=== PATIENT | female | born 1990 | race Caucasian/White ===

== ENCOUNTER 2021-01-12 09:12 | Inpatient (IN) | payer OTHER, SELFPAY ==
[2021-01-12] VITALS (58 sets, daily range): BP systolic 99–127; BP diastolic 44–102; PULSE 34–112; RESP 12–16; TEMP 36.1–37.4; O2SAT 84–100; BMI 29.1
[2021-01-12] MEDS: LACTATED RINGERS 1,000 ML 125 ML IV CONT (09:30)
--- NOTE | 2021-01-12 09:38 | PM.IMHP ---
H&P: HPI History of Present Illness Date/Time: 01/12/21 09:38 Jayla is a @ 37.3wks (DAKSHA 01/30/21) who presented to L&D in active labor; SROM today @ unknown time; found to be 6cm. She denies bleeding. Good movement. Requesting c/s. Her is complicated by: - H/o shoulder dystocia; requesting pLTCS + BTL - BTL papers signed on 10/17/20 - H/o substance abuse; last fentanyl use 01/11/21 - Limited care; 2 visits, no labs performed - Hepatitis C - Complex social situation; does not have custody of 3 prior children Chief Complaint: contractions and leakage of fluid Review of Systems Review of Systems: All systems reviewed & are unremarkable except as noted in HPI and below (HPI) [facility] Family History Family History Grandparent Hypertension Diabetes mellitus Mother Family history of hypothyroidism Meds Home Medications and Allergies Allergies Allergy/AdvReac Type Severity Reaction Status Date / Time No Known Allergies Allergy Unknown Verified 08/19/11 10:07 Exam Const: General: acute distress (with contractions), anxious and intoxicated appearing Resp: Effort & Inspection: normal respiratory effort and able to speak in complete sentences Cardio: Rate: regular rate GI: GI Palp: No abdominal tenderness and Yes Soft to palpation : Other: FHT's: 150's/ mod jenny/ + accels/ no decels but discontinuous TOCO: ctx's q 2-3min Membranes: SROM Cervix; 7cm Psych: Speech and movement: Psychomotor agitation in speech present and Restless speech present Affect: Anxious affect present Attitude: Belligerent attititude/behavior present Assessment and Plan Assessment and plan (1) : Qualifiers: Weeks of gestation: 37 weeks Qualified Code(s): Z3A.37 - 37 weeks gestation of Code(s): Z34.90 - Encounter for supervision of normal , unspecified, unspecified trimester Status: Acute (2) Drug abuse and dependence: Code(s): F19.20 - Other psychoactive substance dependence, uncomplicated Status: Acute (3) History of shoulder dystocia in prior : Code(s): Z87.59 - Personal history of other complications of , childbirth and the puerperium Status: Acute (4) Request for sterilization: Code(s): Z30.2 - Encounter for sterilization Status: Acute Additional Plan - plan for primary low transverse section with tubal ligation - risks and benefits explained in detail - social work consult
--- NOTE | 2021-01-12 09:49 | WPDHPUPDATE1 ---
History and Physical Update Update Date/Time: 01/12/21 09:49 History and Physical has been reviewed, including an updated exam of the patient. There are NO changes in the patient's condition. Risks, benefits, and alternatives have been discussed and questions answered. Patient agrees to proceed with procedure.
[2021-01-12 09:59] LABS: Basophils Absolute Auto 0.1 K/mm3 (0.0-0.1); Basophils Percent Auto 0.6 % (0.2-1.2); Eosinophils Absolute Auto 0.1 K/mm3 (0-0.3); Eosinophils Percent Auto 0.7 % (0-4.4); Hematocrit 34.8 % (37.0-47.0); Hemoglobin 11.3 g/dL (12.0-15.0); Immature Granulocyte Absolute 0.16 K/mm3 (0.00-0.031); Immature Granulocyte Percent A 1.2 % (0-0.5); Lymphocytes Absolute Auto 1.88 K/mm3 (0.9-3.2); Lymphocytes Percent Auto 13.6 % (18.3-44.2); Mean Corpuscular HGB Conc 32.5 g/dl (32-36); Mean Corpuscular Hemoglobin 28.2 pg (26-34); Mean Corpuscular Volume 86.8 fl (80-100); Mean Platelet Volume 9.7 fl (7.4-10.4); Monocytes Absolute Auto 1.1 K/mm3 (0.1-0.6); Monocytes Percent Auto 7.7 % (2.6-8.5); Neutrophils Absolute Auto 10.5 K/mm3 (1.3-6.7); Neutrophils Percent Auto 76.2 % (45.5-73.1); Platelet Count Result 271 k/mm3 (150-375); Red Blood Count 4.01 M/mm3 (4.2-5.4); Red Cell Distribution Width 13.3 % (11.5-14.5); White Blood Count 13.8 K/mm3 (4.5-10.0)
[2021-01-12] MEDS: ceFAZolin 2 GM/D5W 50 ML 2 GM/50 ML BAG IVPB (10:01)
[2021-01-12 10:10] LABS: Alanine Aminotransferase 33 U/L (4-35); Albumin Level 3.3 g/dL (3.5-5.1); Alkaline Phosphatase 356 U/L (38-126); Aspartate Amino Transferase 38 U/L (14-36); Bilirubin,Total 0.5 mg/dL (0.2-1.3)
--- NOTE | 2021-01-12 10:35 | WPDANESEPPF ---
Anes - Initial Pre Proc Eval Procedure: Primary C section Date/Time: 01/12/21 10:35 Surgeon: Ne Downs MD Pre Op Diagnosis: History of Shoulder dystocia Pre Op Diagnosis: Contractions Patient Data Age: 30 Gender: F Height: Weight: Last Vital Signs Pulse 67 01/12/21 09:46 BP 113/102 H 01/12/21 09:46 Allergies Allergy/AdvReac Type Severity Reaction Status Date / Time No Known Allergies Allergy Unknown Verified 08/19/11 10:07 Laboratory Tests 01/12/21 01/12/21 01/12/21 09:45 09:45 09:45 WBC 13.8 K/mm3 H K/mm3 (4.5-10.0) RBC 4.01 M/mm3 L M/mm3 (4.2-5.4) Hgb 11.3 g/dL L g/dL (12.0-15.0) Hct 34.8 % L % (37.0-47.0) MCV 86.8 fl fl (80-100) MCH 28.2 pg pg (26-34) MCHC 32.5 g/dl g/dl (32-36) RDW 13.3 % % (11.5-14.5) Plt Count 271 k/mm3 k/mm3 (150-375) MPV 9.7 fl fl (7.4-10.4) Immature Gran % (Auto) 1.2 % H % (0-0.5) Neut % (Auto) 76.2 % H % (45.5-73.1) Lymph % (Auto) 13.6 % L % (18.3-44.2) [place] % (Auto) 7.7 % % (2.6-8.5) Eos % (Auto) 0.7 % % (0-4.4) Baso % (Auto) 0.6 % % (0.2-1.2) Lymph # (Auto) 1.88 K/mm3 K/mm3 (0.9-3.2) [place] # (Auto) 1.1 K/mm3 H K/mm3 (0.1-0.6) Eos # (Auto) 0.1 K/mm3 K/mm3 (0-0.3) Baso # (Auto) 0.1 K/mm3 K/mm3 (0.0-0.1) Abs Immat Gran (auto) 0.16 K/mm3 H K/mm3 (0.00-0.031) Absolute Neuts (auto) 10.5 K/mm3 H K/mm3 (1.3-6.7) Absolute Nucleated RBC 0.0 K/mm3 K/mm3 (0.0-0.012) Nucleated RBC % 0.0 % % (0.0-0.2) Total Bilirubin Direct Bilirubin AST ALT Alkaline Phosphatase Total Protein Albumin RPR Pending HIV 1&2 Ab/P24 Ag 4thGn Rubella IgG Antibody Pending 01/12/21 01/12/21 09:45 09:45 WBC RBC Hgb Hct MCV MCH MCHC RDW Plt Count MPV Immature Gran % (Auto) Neut % (Auto) Lymph % (Auto) [place] % (Auto) Eos % (Auto) Baso % (Auto) Lymph # (Auto) [place] # (Auto) Eos # (Auto) Baso # (Auto) Abs Immat Gran (auto) Absolute Neuts (auto) Absolute Nucleated RBC Nucleated RBC % Total Bilirubin 0.5 mg/dL mg/dL (0.2-1.3) Direct Bilirubin 0.0 mg/dL mg/dL (0-0.3) AST 38 U/L H U/L (14-36) ALT 33 U/L U/L (4-35) Alkaline Phosphatase 356 U/L H U/L (38-126) Total Protein 7.0 g/dL g/dL (6.3-8.2) Albumin 3.3 g/dL L g/dL (3.5-5.1) RPR HIV 1&2 Ab/P24 Ag 4thGn Pending Rubella IgG Antibody Patient hx anesthesia problems: none Family hx anesthesia problems: none [facility] Past Medical History Medical History (Updated 01/12/21 @ 10:37 by Eulogio Bocanegra DO) Drug abuse and dependence Hepatitis C Family History Family History Grandparent Hypertension Diabetes mellitus Mother Family history of hypothyroidism Social History Social History (Updated 01/12/21 @ 10:37 by Eulogio Bocanegra DO) Smoking status: Current every day smoker Anes - Eval Final PreProcedure Day of Procedure 01/12/21 10:35 Patient weight: normal Heart: regular rate and rhythm Lungs: clear to auscultation and normal air movement Airway: Mallampati scale class II Neurological: alert and oriented Last oral intake: >/= 8 hours ASA classification: III Emergent: yes Anesthetic plan: proceed Anesthesia type and monitoring: regional spinal and standard monitoring Informed Consent: The patient's anesthetic plan and its attendant risks and benefits w
--- NOTE | 2021-01-12 10:50 | P.PCNOB_ITS ---
OB - Delivery Note Procedure Procedure: Procedures Operation Date: 01/12/21 10:00 <No data on this case meets the specified criteria> Route of delivery: Indication for instrumentation: other (prior shoulder dystocia) Episiotomy description: None Specimen: Yes Quantitative Blood Loss (ml): 1,090 Anesthesia type: Spinal Disposition: floor Narrative: Patient prepped in usual manner for this procedure. Pfannenstiel incision was made. This was carried down to the fascia which was extended bilaterally the length of the skin incision. Peritoneum was readily entered and bladder flap was developed. Uterus scored with clear fluid and the vertex was delivered without difficulty. Rest of baby was delivered cord clamped cut and placenta was removed manually. Uterus was exteriorized and incision approximated 0 Monocryl running interlocking manner with good approximation hemostasis noted. Left angle was oozing slightly and a [id number] suture rendered this hemostatic. Uterus was turned to the abdomen gutters were cleared of serosanguineous fluid and clots. The was no significant bleeding at this point. All subfascial tissue was noted hemostatic and then approximated using 0 Vicryl from left angle midline and the right angle to midline. Subcutaneous tissue was irrigated approximated using 0 plain suture and fredy used to approximate skin edges. At this point seizure was considered terminated immediate postop condition mother baby were both excellent. [place] Baby Weeks of gestation at delivery: 37 Infant gender: Male Weight (pounds): 6 Weight (ounces): 12 score one minute: 7 score five minutes: 9
[2021-01-12 10:51] LABS: HIV 1/2 Ab P24 Ag Result Negative (Negative); Rubella IgG Antibody 8.3 IU/ML
--- NOTE | 2021-01-12 11:45 | LDADM ---
This patient, Jayla Wick, was admitted to Labor/Delivery/Recovery 120 on 01/12/21 at 09:12. Plans for labor, pain management and were discussed with patient. Patient/family oriented to hospital policies and general routines including ID bracelet, bed and alarms, visiting hours, pain management, procedures, bathroom and other care routines, personal items, smoking policy, room service/diet and guest tray routines, infant security routines, and visiting hours. Patient/Family are encouraged to report perceived risks to care and to ask questions if they do not understand what they are told or what they should do. See OBIX for further documentation.
[2021-01-12 11:51] LABS: Amphetamine Screen Urine Positive (Negative); Barbiturate Screen Urine Negative (Negative); Benzodiazepines Screen Urine Negative (Negative); Cannabinoid Screen Urine Negative (Negative); Cocaine Screen Urine Negative (Negative); Methadone Screen Urine Negative (Negative); Opiate Screen Urine Negative (Negative); Phencyclidine Screen Urine Negative (Negative)
[2021-01-12] MEDS: OXYTOCIN 30 UNITS/NS 500 ML 30 UNITS/500 ML BAG 125 UNITS IV CONT (12:00)
[2021-01-12 12:31] LABS: Hepatitis B Surface Antigen Negative (Negative)
[2021-01-12] MEDS: KETOROLAC 30 MG/ML VIAL (*BKC) IV PUSH (12:41)
[2021-01-12] MEDS: MORPHINE SULFATE INJ (*CRX) 10 MG/ML AMP (13:55)
[2021-01-12] MEDS: DEXTROSE 5%/0.45% SOD CHL 1,000 ML 125 ML IV CONT (14:02)
--- NOTE | 2021-01-12 14:07 | OBPPTRN ---
1321 Patient transferred to post room #282 via stretcher. Oriented to unit, room, information board, rooming in, admission packet and security measures. Patient verbalizes understanding.
--- NOTE | 2021-01-12 14:54 | PC.NURSE ---
1340 Fundal message to firm, clots passed pt in major pain with fundal checks. Called out for RN to assist. Second RN in room did manual removal of clots while this RN @ [address] Larios to update and get stronger IV pain meds ordered. Second RN increased Pitocin IV to wide open. Weighed clots 299cc. VS are charted they were stable. 1355 Morphine given IM. 1410 Fundus firm, scant bleeding, pt sleeping.
[2021-01-12] MEDS: HYDROcodone/acetaminophen (*CRX) 5-325 MG TABLET 1 TAB PO ×2 (20:37→21:15)
[2021-01-12] MEDS: IBUPROFEN 600 MG TABLET PO (20:37)
[2021-01-12] MEDS: KCL 20 MEQ/D5/0.45% SOD CHL 1,000 ML 125 ML IV CONT (22:18)
[2021-01-13 00:05] VITALS: BP 95/52; PULSE 70; RESP 18; TEMP 37.2
[2021-01-13] MEDS: IBUPROFEN 600 MG TABLET PO ×3 (04:03→19:24)
[2021-01-13] MEDS: HYDROcodone/acetaminophen (*CRX) 5-325 MG TABLET 1 TAB PO (04:03)
[2021-01-13 04:10] VITALS: BP 100/56; PULSE 64; RESP 18; TEMP 37.1
[2021-01-13] MEDS: DEXTROSE 5%/0.45% SOD CHL 1,000 ML 125 ML IV CONT (05:47)
[2021-01-13 05:49] LABS: Basophils Percent Auto 0.3 % (0.2-1.2); Eosinophils Percent Auto 0.1 % (0-4.4); Hematocrit 27.5 % (37.0-47.0); Immature Granulocyte Absolute 0.13 K/mm3 (0.00-0.031); Immature Granulocyte Percent A 0.9 % (0-0.5); Lymphocytes Absolute Auto 2.06 K/mm3 (0.9-3.2); Lymphocytes Percent Auto 14.4 % (18.3-44.2); Mean Corpuscular HGB Conc 32.7 g/dl (32-36); Mean Corpuscular Hemoglobin 28.3 pg (26-34); Mean Corpuscular Volume 86.5 fl (80-100); Mean Platelet Volume 9.7 fl (7.4-10.4); Monocytes Absolute Auto 0.9 K/mm3 (0.1-0.6); Neutrophils Absolute Auto 11.2 K/mm3 (1.3-6.7); Neutrophils Percent Auto 78.3 % (45.5-73.1); Platelet Count Result 278 k/mm3 (150-375); Red Blood Count 3.18 M/mm3 (4.2-5.4); Red Cell Distribution Width 13.4 % (11.5-14.5); White Blood Count 14.3 K/mm3 (4.5-10.0)
--- NOTE | 2021-01-13 05:52 | PC.NURSE ---
01/13/2021 approximately 0545. After drawing patient's lab. I performed pericare and told the patient she needs to get OOB. Patient states, I can't, I'm dope sick. They told you didn't they? I told the patient yes I had been told she used Fentanyl the day before. I encouraged the patient to get OOB to decrease the chance of getting pneumonia by lying in bed among other things. I can't I just hurt all over. The patient refused to get OOB. The patient states she wants some Methadone from her doctor to help with the withdrawals from the Fentanyl. I suggested the patient ask the doctor about it this morning when he comes in. The patient stated understanding.
[2021-01-13 07:20] VITALS: BP 100/56; PULSE 68; RESP 16; TEMP 36.6; O2SAT 95
[2021-01-13] MEDS: HYDROcodone/acetaminophen (*CRX) 10-325 MG TABLET 1 TAB PO ×4 (07:53→19:23)
[2021-01-13 08:02] LABS: Rapid Plasma Reagin Non-Reactive (NonReactive)
--- NOTE | 2021-01-13 09:42 | PM.OBPNVD ---
OB - PN: Subj Subjective Date/time seen: 01/13/21 09:42 POD#1 Jayla reports not doing well today; she reports she is going through withdrawals. She reports feeling sweaty, muscle aches, nausea, anorexia. She reports minimal PO intake. She still has her friend catheter in place. She has passed gas multiple times. 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 She does not plan to breast feed. She has not gotten any updates about her son (transferred to [facility]). She denies anxiety, CP, SOB, CHOU, vision changes, fever, chills, vomiting, dizziness or palpations. OB - PN: Obj Data Labs CBC & Chem 7: 01/13/21 05:39 Labs: Laboratory Results - last 24 hr 01/12/21 01/12/21 01/12/21 09:45 09:45 09:45 WBC 13.8 H RBC 4.01 L Hgb 11.3 L Hct 34.8 L MCV 86.8 MCH 28.2 MCHC 32.5 RDW 13.3 Plt Count 271 MPV 9.7 Immature Gran % (Auto) 1.2 H Neut % (Auto) 76.2 H Lymph % (Auto) 13.6 L [place] % (Auto) 7.7 Eos % (Auto) 0.7 Baso % (Auto) 0.6 Lymph # (Auto) 1.88 [place] # (Auto) 1.1 H Eos # (Auto) 0.1 Baso # (Auto) 0.1 Abs Immat Gran (auto) 0.16 H Absolute Neuts (auto) 10.5 H Absolute Nucleated RBC 0.0 Nucleated RBC % 0.0 Total Bilirubin Direct Bilirubin AST ALT Alkaline Phosphatase Total Protein Albumin Urine Opiates Screen Negative Urine Methadone Screen Negative Ur Barbiturates Screen Negative Ur Phencyclidine Scrn Negative Ur Amphetamine Screen Positive A U Benzodiazepines Scrn Negative Urine Cocaine Screen Negative U Cannabinoids Screen Negative RPR Hep Bs Antigen HIV 1&2 Ab/P24 Ag 4thGn Rubella IgG Antibody 8.3 L Blood Type Antibody Screen 01/12/21 01/12/21 01/12/21 09:45 09:45 09:45 WBC RBC Hgb Hct MCV MCH MCHC RDW Plt Count MPV Immature Gran % (Auto) Neut % (Auto) Lymph % (Auto) [place] % (Auto) Eos % (Auto) Baso % (Auto) Lymph # (Auto) [place] # (Auto) Eos # (Auto) Baso # (Auto) Abs Immat Gran (auto) Absolute Neuts (auto) Absolute Nucleated RBC Nucleated RBC % Total Bilirubin Direct Bilirubin AST ALT Alkaline Phosphatase Total Protein Albumin Urine Opiates Screen Urine Methadone Screen Ur Barbiturates Screen Ur Phencyclidine Scrn Ur Amphetamine Screen U Benzodiazepines Scrn Urine Cocaine Screen U Cannabinoids Screen RPR Non-reactive Hep Bs Antigen HIV 1&2 Ab/P24 Ag 4thGn Negative Rubella IgG Antibody Blood Type A Positive Antibody Screen Negative 01/12/21 01/12/21 01/13/21 09:45 09:45 05:39 WBC 14.3 H RBC 3.18 L Hgb 9.0 L Hct 27.5 L MCV 86.5 MCH 28.3 MCHC 32.7 RDW 13.4 Plt Count 278 MPV 9.7 Immature Gran % (Auto) 0.9 H Neut % (Auto) 78.3 H Lymph % (Auto) 14.4 L [place] % (Auto) 6.0 Eos % (Auto) 0.1 Baso % (Auto) 0.3 Lymph # (Auto) 2.06 [place] # (Auto) 0.9 H Eos # (Auto) 0.0 Baso # (Auto) 0.0 Abs Immat Gran (auto) 0.13 H Absolute Neuts (auto) 11.2 H Absolute Nucleated RBC 0.0 Nucleated RBC % 0.0 Total Bilirubin 0.5 Direct Bilirubin 0.0 AST 38 H ALT 33 Alkaline Phosphatase 356 H Total Protein 7.0 Albumin 3.3 L Urine Opiates Screen Urine Methadone Screen Ur Barbiturates Screen Ur Phencyclidine Scrn Ur Amphetamine Screen U Benzodiazepines Scrn Urine Cocaine Screen U Cannabinoids Screen RPR Hep Bs Antigen Negative HIV 1&2 Ab/P24 Ag 4thGn Rubella IgG Antibody Blood Type Antibody Screen OB - PN A/P Assessment and Plan (1) Drug abuse and dependence: Code(s): F19.20 - Other psychoactive substance dependence, uncomplicated Status: Acute (2) S/P section: Code(s): Z98.891 - History of uterine scar from previous surgery Stat
--- NOTE | 2021-01-13 10:16 | WPDANLDPN2 ---
Anes-Prog Note L&D Date/Time: 01/13/21 10:16 Comfortable throughout: section Neuraxial method: spinal Epidural/Spinal procedure site: clean & non-tender Neuro status: Neuro function grossly intact. Cardiovascular status: normal Respiratory status: normal Airway patency: baseline Mental status: baseline Post-Op hydration status: normal Vital Signs: Last Vital Signs Temp 36.6 C 01/13/21 07:20 Pulse 68 01/13/21 07:20 Resp 16 01/13/21 07:20 BP 100/56 L 01/13/21 07:20 Pulse Ox 95 01/13/21 07:20 Pain score (VAS): 2 I/O: Intake & Output 01/12/21 01/13/21 01/13/21 23:59 07:59 15:59 Intake Total 1000 100 Output Total 1250 4745 Balance -250 -1726 Post-procedural complaints: none Patient feedback: Patient satisfied with anesthetic care.
--- NOTE | 2021-01-13 10:17 | WPDANLDNPN2 ---
Anes-Prog Note L&D-Neuraxial Date/Time: 01/13/21 10:17 Neuraxial medications: intrathecal PF morphine Opiod-related complaints: none Patient feedback: Patient satisfied with post-operative pain management.
[2021-01-13] MEDS: ONDANSETRON INJ 4 MG/2 ML VIAL IV PUSH (10:24)
[2021-01-13 11:04] LABS: Hepatitis B Surface Antigen Negative (Negative)
[2021-01-13 11:10] LABS: HAV RESULT Negative (Negative); Hepatitis B Core IgM Result Negative (Negative)
[2021-01-13 11:57] LABS: Hepatitis C Virus Antibody Reactive (Negative)
--- NOTE | 2021-01-13 12:25 | PC.NURSE ---
Pt outside per wheelchair with support person to visit with her grandmother and to smoke a cigarette. Pt support person aware that he needs to remain with her the whole time she is downstairs and that if she feels unwell, dizzy, or has excessive bleeding she needs to return to the floor immediately. Pt's IV access has been removed prior to her leaving the floor.
--- NOTE | 2021-01-13 13:01 | PCCCNOTE ---
Addendum entered by Ana Maria Vazquez, INSURANCE CONSULTANT 01/14/21 10:34: Received call from Olivia, [facility] at [facility] assigned to Baby Lilliam Wick. Olivia can be reached at [phone]. Per Olivia baby lilliam Wick's urine was tested upon admission to [facility] and is positive for Fentanyl. CC contacted DCFS worker Amelie Burch to inform. Amelie is aware and will contact Olivia. Amelie also reports she will come to the hospital this afternoon to speak with pt. and sig katja Olivier. Addendum entered by Ana Maria Vazquez, INSURANCE CONSULTANT 01/13/21 14:03: Received call from Lois Gregorio [facility] humidifier maintenance worker @ [phone]. She will be assigned DCFS worker for Baby Lilliam Wick for today. Per Lois, ongoing DCFS social work case manager for pt. is Amelie Burch @ [phone] located at the [place] DCFS office. Per Lois she will be available today however Amelie should be back in the office tomorrow to take over case. Per Lois she will be going to [facility] to see baby and will be contacting pt. and PATRICIA Tolentino. RN aware. Original Note: Care Coordination Note: Attempted to meet with pt. this morning. Pt. provided little information. Additional information provided by RN and Crate Repairer. Pt. lives at home with her sig katja Rajan and has three other children. DCFS is currently involved with other three children, no other information provided by pt. such as ages of other children at home. Pt. does admit to methamphetamine and IV Fentanyl use during . Pt. did test positive for amphetamines upon admission to hospital. Baby Lilliam Wick was transferred last night to [facility], call to [phone] and attempted to leave voice message for Energy Conservation Technician to inform of maternal drug use during . Additionally completed DCFS online report [id number]. Will follow.
[2021-01-13] MEDS: DOCUSATE SODIUM 100 MG CAPSULE PO (16:01)
[2021-01-13] MEDS: POLYSACCHARIDE IRON COMPLEX 150 MG CAPSULE PO (16:05)
[2021-01-13 19:30] VITALS: BP 96/47; PULSE 74; RESP 18; TEMP 36.8; O2SAT 100
[2021-01-14] MEDS: HYDROcodone/acetaminophen (*CRX) 10-325 MG TABLET 1 TAB PO (03:11)
[2021-01-14] MEDS: IBUPROFEN 600 MG TABLET PO ×2 (03:11→13:41)
[2021-01-14 08:00] VITALS: BP 114/56; PULSE 77; RESP 20; TEMP 36.4
--- NOTE | 2021-01-14 12:58 | PM.OBDSVD ---
DS: Admitting Diagnosis Admitting Diagnosis Admitting Diagnosis: active labor DS: Discharge Diagnosis Discharge Diagnosis (1) History of shoulder dystocia in prior : Code(s): Z87.59 - Personal history of other complications of , childbirth and the puerperium Status: Acute (2) Drug abuse and dependence: Code(s): F19.20 - Other psychoactive substance dependence, uncomplicated Status: Acute (3) S/P section: Code(s): Z98.891 - History of uterine scar from previous surgery Status: Acute OB - DS: Summary OB Procedures : Ultrasound OB Procedures Intrapartum: low cervical, transverse OB Procedures: : None Peripartum Data Delivery Method: Section Procedures: Procedures Operation Date: 01/12/21 10:00 Actual Procedure Side Surgeon p Section Marcio Larios MD complications: none 1: Gender: Male Disposition of : NICU Status at Discharge Functional status at discharge: independent ambulation Overall status at discharge: patient is back to baseline Time Spent with Patient Time attestation: Total time spent providing and/or coordinating discharge services: Exam Const: General: cooperative, healthy appearing, comfortable and no acute distress Resp: Effort & Inspection: normal respiratory effort and able to speak in complete sentences Auscultation: clear to auscultation bilaterally Cardio: Rate: regular rate GI: Inspection: incision (C/D/I closed with fredy) GI Palp: No abdominal tenderness and Yes Soft to palpation Auscultation: normal bowel sounds : Other: fundus firm at umbilicus Skin: General skin exam: normal color Neuro: General: patient oriented x3 Extrem: General: normal to inspection Psych: Appearance: grossly normal Affect: normal affect Attitude: cooperative DS: Data Data Completed and Pending Pending studies at discharge: Pending at discharge 01/12/21 11:11 Surgical [PTH] Routine Discharge Plan Discharge Attending physician on discharge: Ne Downs Discharging Clinician: Ne Downs Anticipated Discharge Date/Time: 01/14/21 18:00 Patient Disposition: Home, Self-Care Activity: may shower, no straining and pelvic rest Diet: regular Discharge Instructions: pt to f/u 1wk for staple removal; keep incision clean and dry Patient Instructions: Antibiotic Form, How to Stop Smoking (DC) Stand Alone Forms: General Discharge Information Follow-up/Referrals: Marcio Larios MD [Physician] - 1 Week Discharge Medications: New hydrocodone-acetaminophen 5-325 mg Tablet 1 tablet PO Q3H PRN (Reason: Moderate Pain (4-6)) 3 Days Qty: 20 RF: 0 polysaccharide iron complex 150 mg iron Capsule 150 mg PO BIDWM 30 Days Qty: 60 RF: 0 docusate sodium 100 mg Capsule 100 mg PO BID 30 Days Qty: 60 RF: 0 ibuprofen 600 mg Tablet 600 mg PO Q6H PRN (Reason: Cramping) 10 Days Qty: 40 RF: 0 No Action No Home Medications RF: 0 Date of admission: 01/12/21 09:12 Primary Care Provider: Howard aCrlin Admitting Provider: Ne Downs Attending physician on admission: Ne Downs Condition: Stable
[2021-01-14] MEDS: HYDROcodone/acetaminophen (*CRX) 5-325 MG TABLET 1 TAB PO ×2 (13:41→14:24)
--- NOTE | 2021-01-14 14:00 | PC.NURSE ---
Pt states she could not come back for a PP follow-up appointment.
--- NOTE | 2021-01-14 14:13 | PC.NURSE ---
Pt is rubella non-immune but has refused vaccine.
== END 2021-01-14 14:52 | disposition home or self-care (01) | DRG 540 ==
LOC: ANHLDR 12:06 → ANHOB2 14:06
PROVIDERS: Obstetrics & Gynecology; Admitting Provider Obstetrics & Gynecology; PCP Emergency Medicine; Visit Provider Obstetrics & Gynecology
PROC: 10D00Z1 Extraction of Products of Conception, Low, Open Approach (ICD-10-PCS; CPT 59514; principal; 2021-01-12 10:00)
DX: O99.324 Drug use complicating childbirth (principal); F19.90 Other psychoactive substance use, unspecified, uncomplicated; Z87.59 Personal history of other complications of pregnancy, childbirth and the puerperium; Z3A.37 37 weeks gestation of pregnancy; Z37.0 Single live birth
CPT/HCPCS: 36415; 80074; 80076; 80307; 85025; 86592; 86703; 86762; 86850; 86900; 86901; 87340; 87522; A9270; G0432; J0131; J0690; J1885; J2270; J2274; J2405; J2590; J3010; J3480; J7120